=== PATIENT | male | born 1980 | race Caucasian/White ===

== ENCOUNTER 2018-02-09 10:23 | Day surgery (SDC) | payer BC ==
[2018-02-05 10:19] VITALS: BMI 34.8
[~2018-02-09 10:23] MED LIST: LACTATED RINGERS 1,000 ML IV SCH; LIDOCAINE 1% 20 ML VIAL (10MG/ML) FOR IV START INTRADERMA PRN
[2018-02-09 11:06] VITALS: RESP 16; TEMP 98.1
[2018-02-09] MEDS ORDERED: PROPOFOL 10 MG/ML 20 ML VIAL IV ONE (11:49)
--- NOTE | 2018-02-09 12:14 | P.PCN ---
Date of Procedure: 02/09/18 Procedure(s) Performed: Procedure: Total colonoscopy. Preoperative diagnosis: Screening for neoplasia, patient has family history of colon cancer. Postoperative diagnosis: Exam within normal limits. Preparation: HalfLytely prep. Sedation: Was provided by anesthesia. Brief clinical history: The patient is a 37-year-old male who is scheduled for this evaluation for screening for neoplasia because of family history of colon cancer in his father. The patient had already have his first colonoscopy at age 26. He has no abdominal complaints or anemia. Occasional bleeding from hemorrhoids. Procedure: With the patient on his left lateral decubitus position and after informed consent and adequate sedation, the perianal area was inspected and it did not show any fissures or fistulas. There were no masses felt on digital rectal examination. The Olympus CFQ 160L video colonoscope was then inserted in the rectum in the usual fashion and advanced to the cecum. The mucosa appeared healthy. No polyps or tumors were seen or any obvious diverticular disease or other pathology. I retroflexed the endoscope in the rectum before the endoscope was withdrawn. The patient tolerated the procedure well. Plan: The patient was reassured. He will follow up with you as planned and I recommended repeat exam in 5 years because of his family history.
[2018-02-09 12:35] VITALS: BP 134/86; PULSE 73
== END 2018-02-09 12:43 | disposition home or self-care (01) ==
LOC: ORWHC2ENDO 10:23
DX: Z12.11 Encounter for screening for malignant neoplasm of colon (principal); Z80.0 Family history of malignant neoplasm of digestive organs; F32.9 Major depressive disorder, single episode, unspecified; Z79.899 Other long term (current) drug therapy
CPT/HCPCS: J2704; G0105

== ENCOUNTER → 2024-05-25 | Day surgery (SDC) | payer BC ==
[2024-05-23 16:07] VITALS: BMI 30.7
[~2024-05-25] MED LIST changes: -LACTATED RINGERS 1,000 ML IV SCH; -LIDOCAINE 1% 20 ML VIAL (10MG/ML) FOR IV START INTRADERMA PRN; +PROPOFOL 10 MG/ML 20 ML VIAL IV ONE
[2024-05-25 10:45] VITALS: TEMP 98.2
[2024-05-25] MEDS: IV FLUID CONTINUATION 1,000 ML IV ONE ×2 (10:50→11:27)
[2024-05-25] MEDS: LACTATED RINGERS 1,000 ML IV SCH (10:50)
[2024-05-25] MEDS: LACTATED RINGERS 1,000 ML IV ONE (11:47)
--- NOTE | 2024-05-25 11:48 | P.PCN ---
Date of Procedure: 05/25/24 Procedure(s) Performed: BRIEF HISTORY: Patient is a 43-year-old pleasant white male scheduled for an elective colonoscopy as a part of screening for colon cancer and family history of colon cancer. His dad was diagnosed with colon cancer at age 49 and paternal grandmother at age 50. PROCEDURE PERFORMED: Colonoscopy. PREOPERATIVE DIAGNOSIS: Screening for colon cancer and family history of colon cancer. IV sedation per Anesthesia. PROCEDURE: After informed consent was obtained, the patient, was brought into the endoscopy unit. IV sedation was administered by Anesthesia under continuous monitoring. Digital rectal examination was normal. Initially the Olympus CF-160 flexible video colonoscope was then inserted in the rectum, gradually advanced into the cecum without any difficulty. Careful examination was performed as the scope was gradually being withdrawn. Ileocecal valve and the appendiceal orifice were visualized and appeared normal. Prep was excellent. Mucosa of the cecum, ascending colon, transverse colon, descending colon, sigmoid colon, and rectum appeared normal. Retroflexion was performed in the rectum and no lesions were seen. The patient tolerated the procedure well. IMPRESSION: Normal-appearing colon from rectum to cecum with no evidence of colorectal neoplasia. RECOMMENDATIONS: Findings of this examination were discussed with the patient as well as his family. He was advised to have repeat colonoscopy in 5 years because of a family history of colon cancer.
[2024-05-25 11:51] VITALS: RESP 16
[2024-05-25 12:13] VITALS: BP 149/86; PULSE 70
== END ==
LOC: ORWHC2ENDO 10:21
PROVIDERS: ATTEND Internal Medicine Gastroenterology
DX: Z12.11 Encounter for screening for malignant neoplasm of colon (principal); Z80.0 Family history of malignant neoplasm of digestive organs; F32.A Depression, unspecified; Z79.899 Other long term (current) drug therapy
CPT/HCPCS: 45378; J2704